=== PATIENT | female | born 1970 | race Caucasian/White ===

== ENCOUNTER 2019-09-16 10:11 | Emergency (ER) | payer MEDICAID, OTHER ==
[~2019-09-16] VITALS: Ht 170.2 cm; Wt 114.0 kg
[2019-09-16] MEDS: KETOROLAC 30MG/ML VIAL IV STA ×2 (10:32→14:37)
[2019-09-16] MEDS ORDERED: SODIUM CHLORIDE 0.9% 1,000 ML IV ONE (10:32)
[2019-09-16] MEDS ORDERED: METOCLOPRAMIDE HCL 10MG/2ML VIAL IV ONE (10:45)
[2019-09-16 11:14] LABS: BASOPHILS % 0.5 % (0.0-2.0); HEMATOCRIT. 38.6 % (36.0-48.0); MEAN CORPUSCULAR VOLUME 82.9 fL (81.0-99.0); MEAN PLATELET VOLUME 8.1 fl (7.4-10.4); NEUTROPHILS % 83.5 % (40.0-76.0); PLATELET 342 x1000/uL (130-400); RED BLOOD CELL COUNT 4.66 mill/uL (4.2-5.4); RED CELL DISTRIBUTION WIDTH 16.2 % (11.6-14.6)
[2019-09-16 11:21] LABS: CHLORIDE 105 mEq/L (98-107)
[2019-09-16 14:08] LABS: HCG SCREEN NEGATIVE
[2019-09-16] MEDS ORDERED: IOHEXOL-350 100 ML BOTTLE ONE (15:19)
[2019-09-16 17:02] VITALS: BP 128/62
== END 2019-09-16 17:15 | disposition home or self-care (01) ==
LOC: ER 10:24
DX: R51 Headache (principal); R53.1 Weakness; R41.0 Disorientation, unspecified; R50.9 Fever, unspecified; M79.10 Myalgia, unspecified site; E11.9 Type 2 diabetes mellitus without complications; I10 Essential (primary) hypertension; Z98.890 Other specified postprocedural states; Z87.891 Personal history of nicotine dependence
CPT/HCPCS: 36415; 70496; 71045; 80053; 82962; 84703; 85025; 93005; 96361; 96374; 96375; 99284; J1885; J2765; J7030; Q9967; Z7610